=== PATIENT | female | born 1985 | race Hispanic/Latino ===

== ENCOUNTER 2019-03-06 06:12 | Day surgery (SDC) | payer MEDICARE ==
[~2019-03-06] VITALS: Ht 172.7 cm; Wt 64.3 kg
[~2019-03-06 06:12] MED LIST: ALBUTEROL; ALBUTEROL INH IH; ALPR1TAB7 PO; GABA600T10 PO; INSU100C6 SQ; LIPA1CAP18 PO; OMEP40CA13 PO; ONDA8TAB5 PO; TRAM50TA4 PO; VITAMIN D 1.25MG PO
[2019-03-06] MEDS ORDERED: SODIUM CHLORIDE 0.9% 1000ML 1,000 ML IV ONE (06:13)
[2019-03-06 07:11] VITALS: BP 141/93
[2019-03-06] MEDS ORDERED: PROPOFOL 10 MG/ML 20ML VIAL IV ONE ×2 (08:14→08:33)
[2019-03-06 08:38] VITALS: BP 104/62
[2019-03-06 08:43] VITALS: BP 110/69
[2019-03-06 08:48] VITALS: BP 116/71
[2019-03-06 08:53] VITALS: BP 112/66
[2019-03-06 08:58] VITALS: BP 113/71
== END 2019-03-06 09:09 | disposition home or self-care (01) ==
LOC: ENDO 06:12 → DAH 06:12 → ENDO 09:09
PROVIDERS: ATTEND Internal Medicine
DX: K59.00 Constipation, unspecified (principal); D12.4 Benign neoplasm of descending colon; K29.51 Unspecified chronic gastritis with bleeding; K22.8 Other specified diseases of esophagus; K64.0 First degree hemorrhoids; K21.0 Gastro-esophageal reflux disease with esophagitis; K31.84 Gastroparesis; K44.9 Diaphragmatic hernia without obstruction or gangrene; K76.9 Liver disease, unspecified; K86.89 Other specified diseases of pancreas; E11.9 Type 2 diabetes mellitus without complications; J45.909 Unspecified asthma, uncomplicated; F41.9 Anxiety disorder, unspecified; F32.9 Major depressive disorder, single episode, unspecified; G43.909 Migraine, unspecified, not intractable, without status migrainosus; Z90.49 Acquired absence of other specified parts of digestive tract; Z98.890 Other specified postprocedural states; Z88.8 Allergy status to other drugs, medicaments and biological substances; Z88.6 Allergy status to analgesic agent; Z79.4 Long term (current) use of insulin; Z79.899 Other long term (current) drug therapy
CPT/HCPCS: 43239; 45380; 81025; 82948 ×2; 88305; A4215; A4221; A4222; A4223; A4606; A4620; A4663; J2704 ×2; J7030

== ENCOUNTER 2021-04-16 10:49 | Emergency (ER) | payer MEDICARE ==
[~2021-04-16] VITALS: Ht 172.7 cm; Wt 63.5 kg
[~2021-04-16 10:49] MED LIST changes: -ALBUTEROL; -OMEP40CA13 PO; +OMEP40CA21 PO
[2021-04-16] MEDS ORDERED: DOXY100V2 IV (12:23)
[2021-04-16 12:53] VITALS: BP 115/68
== END 2021-04-16 12:45 | disposition home or self-care (01) ==
LOC: EDH 10:49
DX: U07.1 COVID-19 (principal); J45.909 Unspecified asthma, uncomplicated; E11.9 Type 2 diabetes mellitus without complications; Z88.8 Allergy status to other drugs, medicaments and biological substances; Z90.49 Acquired absence of other specified parts of digestive tract; Z91.040 Latex allergy status; Z79.4 Long term (current) use of insulin; Z91.013 Allergy to seafood; Z79.899 Other long term (current) drug therapy
CPT/HCPCS: 71045

== ENCOUNTER 2023-09-26 07:22 | Emergency (ER) | payer MEDICARE ==
[~2023-09-26] VITALS: Ht 172.7 cm; Wt 61.7 kg
[~2023-09-26 07:22] MED LIST changes: +DOXY100V2 IV
[2023-09-26 08:35] LABS: BASOPHILS # (AUTO) 0.08 K/uL (0.00-0.20); EOSINOPHILS # (AUTO) 0.63 K/uL (0.00-0.70); EOSINOPHILS % (AUTO) 7.9 % (0.0-8.0); HEMATOCRIT 35.4 % (36-48); IMMATURE GRANULOCYTE ABSOLUTE 0.02 K/uL (0-1); LYMPHOCYTES # (AUTO) 3.3 K/uL (1.0-4.8); LYMPHOCYTES % (AUTO) 40.9 % (21.0-51.0); MEAN CORPUSCULAR HEMOGLOBIN 31.8 pg (27.0-33.0); MEAN CORPUSCULAR HGB CONC 33.3 g/dL (32.0-36.0); MEAN CORPUSCULAR VOLUME 95.4 fL (79-99); MONOCYTES # (AUTO) 0.6 K/uL (0.1-1.0); MONOCYTES % (AUTO) 6.9 % (3.0-13.0); NEUTROPHILS # (AUTO) 3.4 K/uL (1.8-7.7); PLATELET COUNT (AUTO) 259 K/uL (130-400); RED BLOOD CELL COUNT(AUTO) 3.71 MIL/uL (4.00-5.50)
[2023-09-26 08:44] LABS: APPEARANCE,URINE CLOUDY (CLEAR); BILIRUBIN,URINE NEGATIVE (NEGATIVE); COLOR,URINE LIGHT-YELLOW (YELLOW); GLUCOSE, URINE (UA) 70 mg/dL (NEGATIVE); KETONES,URINE NEGATIVE (NEGATIVE); LEUKOCYTE ESTERASE ,URINE NEGATIVE Leu/uL (NEGATIVE); NITRATE,URINE NEGATIVE (NEGATIVE); OCCULT BLOOD,URINE NEGATIVE (NEGATIVE); PH,URINE 5.5 (5.0-8.0); PROTEIN,URINE 10 mg/dL (NEGATIVE); UROBILINOGEN,URINE 0.2 mg/dL (0.2-1.0)
[2023-09-26 08:46] LABS: ADD UA MICROSCOPIC YES
[2023-09-26 09:02] LABS: MUCUS,URINE RARE LPF (None Seen); RBC,URINE 0-1 /HPF (0-1); SQUAMOUS EPITHELIAL CELL,UR MANY /HPF (0-2)
[2023-09-26 09:08] LABS: CREATININE 0.7 mg/dL (0.5-1.0); POTASSIUM 4.1 mmol/L (3.5-5.1)
[2023-09-26 09:12] LABS: ALBUMIN 3.2 g/dL (3.5-5.0); BILIRUBIN,TOTAL 0.3 mg/dL (0.2-1.0); TOTAL PROTEIN, SERUM 7.4 g/dL (6.0-8.3)
[2023-09-26] MEDS: HYDROCODONE/ACETAMINOPHEN 10/325 MG TAB PO ONE (09:18)
[2023-09-26] MEDS: MORPHINE 4 MG SYG IVP ONE (09:30)
[2023-09-26] MEDS: CEFTRIAXONE 2GM VIAL IVPB ONE (11:47)
[2023-09-26 12:05] VITALS: BP 129/80; PULSE 88; RESP 18; O2SAT 95
[2023-09-26] MEDS: CEFTRIAXONE 2GM VIAL IJ ONE (12:07)
== END 2023-09-26 12:36 | disposition home or self-care (01) ==
LOC: EDH 07:22
DX: L08.9 Local infection of the skin and subcutaneous tissue, unspecified (principal); Z90.81 Acquired absence of spleen; E11.65 Type 2 diabetes mellitus with hyperglycemia; J45.909 Unspecified asthma, uncomplicated; M79.7 Fibromyalgia; Z79.899 Other long term (current) drug therapy; Z90.49 Acquired absence of other specified parts of digestive tract; Z98.890 Other specified postprocedural states; Z88.8 Allergy status to other drugs, medicaments and biological substances; K76.9 Liver disease, unspecified; Z87.19 Personal history of other diseases of the digestive system; Z90.410 Acquired total absence of pancreas
CPT/HCPCS: 99284; 96374; 96375; 80053; 85025; 87040 ×2; 87086; 83605; 81001; 36415; J0696 ×2; J2270; 96365